=== PATIENT | female | born 1960 | race Caucasian/White ===

== ENCOUNTER 2022-06-22 13:57 | Emergency (ER) | payer BC ==
[2022-06-22 15:09] LABS: #Eosinphils 0.1 thou/uL (0.0-0.7); #Lymphocytes 0.4 thou/uL (1.20-3.40); #Monocytes 0.3 thou/uL (0.11-0.59); #Neutrophils 2.9 thou/uL (1.40-6.50); %Basophils 0.4 % (0.0-1.0); %Eosinophils 2.8 % (0.0-10.0); %Lymphocytes 11.6 % (21.0-51.0); %Monocytes 6.9 % (0.0-10.0); %Neutrophils 78.4 % (42.0-75.0); Hemoglobin 8.3 g/dL (12.0-16.0); Mean Corpuscular HGB CONC 33.5 g/dL (32.0-36.0); Mean Corpuscular Hemoglobin 35.5 pg (27.0-31.0); Mean Platelet Volume 8.1 fL (7.4-10.4); Platelet Count 129 10x3/uL (130-400); RBC Distribution Width 14.6 % (11.5-14.5); Red Blood Cell (RBC) Count 2.33 mill/uL (4.20-5.40); White Blood Cell (WBC) Count 3.7 10x3/uL (4.8-10.8)
[2022-06-22 15:32] LABS: ALT (SGPT) Less than 7 U/L (8-55); AST (SGOT) 11 U/L (5-34); Albumin 3.5 g/dL (3.4-4.8); Alkaline Phosphatase 63 U/L (40-110); Anion Gap 11 mmol/L (10-20); BUN (Urea Nitrogen) 15 mg/dL (9.8-20.1); Bilirubin, Total 0.3 mg/dL (0.2-1.2); Calc. Creatinine Clearance 0 mL/min (70-130); Calcium 9.2 mg/dL (7.8-10.44); Carbon Dioxide 26 mmol/L (23-31); Chloride 106 mmol/L (98-107); Estimated GFR 32; Globulin 2.7 g/dL (2.4-3.5); Glucose 111 mg/dL (80-115); Potassium 4.1 mmol/L (3.5-5.1); Protein, Total 6.2 g/dL (5.8-8.1); Sodium 139 mmol/L (136-145)
[2022-06-22 15:35] LABS: Bacteria/HPF None Seen HPF (None Seen); Bilirubin Negative (Negative); Blood, Urine Negative (Negative); Clarity Clear (Clear); Glucose, Urine (Dipstick) Normal (Negative); Ketone, Urine Negative (Negative); Leukocyte 25 Leu/uL (Negative); Nitrite Negative (Negative); Protein, Urine (Dipstick) Negative (Neg-Trace); RBC/HPF 0-3 HPF (0-3); Specific Gravity, Urine 1.016 (1.002-1.036); Squamous Epithelial 0-3 HPF (0-3); Urobilinogen Normal mg/dL (Less than 2); WBC/HPF 0-3 HPF (0-3); pH, Urine 5.5 (5.0-9.0)
== END 2022-06-22 16:07 | disposition home or self-care (01) ==
LOC: ERS 13:57
DX: M79.89 Other specified soft tissue disorders (principal); N76.2 Acute vulvitis; D72.829 Elevated white blood cell count, unspecified; I10 Essential (primary) hypertension; F17.210 Nicotine dependence, cigarettes, uncomplicated
CPT/HCPCS: 36415; 71045; 80053; 81003; 81015; 83880; 84484; 85025; 93005

== ENCOUNTER 2022-08-10 13:33 | Inpatient (IN) | payer BC ==
[2022-08-10] MEDS ORDERED: Morphine 4 MG/ML VIAL ONE ×2 (15:20→15:59)
[2022-08-10 15:47] LABS: ALT (SGPT) 13 U/L (8-55); AST (SGOT) 11 U/L (5-34); Albumin 3.5 g/dL (3.4-4.8); Alkaline Phosphatase 66 U/L (40-110); Anion Gap 14 mmol/L (10-20); BUN (Urea Nitrogen) 24 mg/dL (9.8-20.1); Bilirubin, Total 0.4 mg/dL (0.2-1.2); Calc. Creatinine Clearance 0 mL/min (70-130); Calcium 9.2 mg/dL (7.8-10.44); Carbon Dioxide 25 mmol/L (23-31); Chloride 105 mmol/L (98-107); Estimated GFR 32; Globulin 2.9 g/dL (2.4-3.5); Glucose 125 mg/dL (80-115); Magnesium 1.2 mg/dL (1.6-2.6); Potassium 4.8 mmol/L (3.5-5.1); Protein, Total 6.4 g/dL (5.8-8.1); Sodium 139 mmol/L (136-145)
[2022-08-10 15:48] LABS: Bacteria/HPF None Seen HPF (None Seen); Bilirubin Negative (Negative); Blood, Urine Negative (Negative); CAUTI Indications for Culture Pelvic or flank pain; Clarity Clear (Clear); Glucose, Urine (Dipstick) Normal (Negative); Ketone, Urine Negative (Negative); Leukocyte Negative Leu/uL (Negative); Nitrite Negative (Negative); Protein, Urine (Dipstick) Negative (Neg-Trace); RBC/HPF 0-3 HPF (0-3); Specific Gravity, Urine 1.012 (1.002-1.036); Squamous Epithelial None Seen HPF (0-3); Urobilinogen Normal mg/dL (Less than 2); WBC/HPF 0-3 HPF (0-3); pH, Urine 7.5 (5.0-9.0)
[2022-08-10 15:49] LABS: Urine Culture Reflex No No
[2022-08-10] MEDS ORDERED: Magnesium 2 GM/50 ML BAG (IN WATER) ONE (16:00)
[2022-08-10 16:09] LABS: #Eosinphils 0.8 thou/uL (0.0-0.7); #Monocytes 0.3 thou/uL (0.11-0.59); #Neutrophils 8.3 thou/uL (1.40-6.50); %Basophils 0.1 % (0.0-1.0); %Eosinophils 8.2 % (0.0-10.0); %Lymphocytes 3.6 % (21.0-51.0); %Neutrophils 83.6 % (42.0-75.0); Hemoglobin 8.6 g/dL (12.0-16.0); Mean Corpuscular HGB CONC 31.5 g/dL (32.0-36.0); Mean Corpuscular Hemoglobin 32.7 pg (27.0-31.0); Mean Corpuscular Volume 103.8 fl (78.0-98.0); Mean Platelet Volume 9.9 fL (7.4-10.4); Platelet Count 187 10x3/uL (130-400); RBC Distribution Width 14.3 % (11.5-14.5); Red Blood Cell (RBC) Count 2.63 mill/uL (4.20-5.40); White Blood Cell (WBC) Count 9.9 10x3/uL (4.8-10.8)
[2022-08-10] MEDS ORDERED: Ondansetron PF 4 MG/2 ML Vial IVP PRN (16:23)
[2022-08-10] MEDS ORDERED: Ipratropium/Albuterol 3 ML NEB NEB PRN (16:26)
[2022-08-10] MEDS ORDERED: HYDROmorphone 0.5 MG/0.5 ML SYRINGE ONE (17:11)
[2022-08-10] MEDS: Sodium Chloride 0.9% 1,000 ML IV SCH (18:36)
[2022-08-10] MEDS: Acetaminophen 500 MG TAB PO SCH ×2 (18:36→23:00)
[2022-08-10] MEDS: Morphine 4 MG/ML VIAL SLOW IVP PRN ×2 (18:37→21:12)
[2022-08-10] MEDS ORDERED: Famotidine/PF 20 mg/2ml Vial SLOW IVP SCH (21:00)
[2022-08-10] MEDS ORDERED: diphenhydrAMINE 50 MG/ML VIAL IVP SCH (21:00)
[2022-08-10] MEDS: Senokot S 8.6-50 MG TAB PO SCH (21:00)
[2022-08-10 21:06] VITALS: BMI 35.0
[2022-08-10] MEDS: HYDROcodone/Acetaminophen 10/325 mg Tablet PO PRN (21:11)
[2022-08-11] MEDS: Morphine 4 MG/ML VIAL SLOW IVP PRN ×5 (00:06→12:04)
[2022-08-11] MEDS: Cyclobenzaprine 10 MG TAB PO PRN (00:07)
[2022-08-11] MEDS ORDERED: diphenhydrAMINE 25 MG CAP PO PRN (00:19)
[2022-08-11] MEDS: HYDROcodone/Acetaminophen 10/325 mg Tablet PO PRN ×2 (03:15→20:35)
[2022-08-11] MEDS: Sodium Chloride 0.9% 1,000 ML IV SCH ×3 (05:00→17:30)
[2022-08-11] MEDS: Acetaminophen 500 MG TAB PO SCH ×4 (05:33→23:06)
[2022-08-11 06:33] LABS: #Eosinphils 0.5 thou/uL (0.0-0.7); #Monocytes 0.3 thou/uL (0.11-0.59); #Neutrophils 5.5 thou/uL (1.40-6.50); %Basophils 0.1 % (0.0-1.0); %Eosinophils 7.4 % (0.0-10.0); %Lymphocytes 5.9 % (21.0-51.0); %Monocytes 3.9 % (0.0-10.0); %Neutrophils 81.7 % (42.0-75.0); Mean Corpuscular HGB CONC 32.4 g/dL (32.0-36.0); Mean Corpuscular Hemoglobin 32.6 pg (27.0-31.0); Mean Corpuscular Volume 100.7 fl (78.0-98.0); Mean Platelet Volume 10.4 fL (7.4-10.4); Platelet Count 158 10x3/uL (130-400); RBC Distribution Width 15.4 % (11.5-14.5); Red Blood Cell (RBC) Count 2.76 mill/uL (4.20-5.40); White Blood Cell (WBC) Count 6.7 10x3/uL (4.8-10.8)
[2022-08-11 06:38] LABS: INR-International Normal Ratio 1.1; PTT 32.7 sec (22.9-36.1); Prothrombin Time 14.7 sec (12.0-14.7)
[2022-08-11 06:40] LABS: Phosphorus 3.9 mg/dL (2.3-4.7)
[2022-08-11 06:44] LABS: Anion Gap 12 mmol/L (10-20); BUN (Urea Nitrogen) 21 mg/dL (9.8-20.1); Calc. Creatinine Clearance 56 mL/min (70-130); Calcium 8.8 mg/dL (7.8-10.44); Carbon Dioxide 24 mmol/L (23-31); Chloride 103 mmol/L (98-107); Estimated GFR 39; Glucose 97 mg/dL (80-115); Magnesium 1.5 mg/dL (1.6-2.6); Potassium 4.2 mmol/L (3.5-5.1); Sodium 135 mmol/L (136-145)
[2022-08-11] MEDS ORDERED: Clindamycin/D5W 600 MG in Premix Bag 1 BAG IVPB SCH ×2 (08:45)
[2022-08-11] MEDS ORDERED: Non-Formulary Item 1 EACH (Oxybutynin Chloride [Oxybutynin Chloride Er] 10 MG Tab.Er.24) PO SCH (09:00)
[2022-08-11] MEDS: Gabapentin 300 MG CAP PO SCH ×3 (09:39→20:36)
[2022-08-11] MEDS: buPROPion HCl 100 MG TAB PO SCH (09:39)
[2022-08-11] MEDS: Citalopram 20 MG TAB PO SCH (09:39)
[2022-08-11] MEDS: Magnesium 2 GM/50 ML(in water) 2 GM in Premix Bag 1 BAG IVPB SCH ×2 (09:40→11:21)
[2022-08-11] MEDS: Ferrous Sulfate 325 MG TAB PO SCH ×2 (09:41→18:27)
[2022-08-11] MEDS: Ascorbic Acid 500 mg Chewable Tablet PO SCH ×2 (09:41→20:36)
[2022-08-11] MEDS: predniSONE 20 MG TAB PO SCH (09:41)
[2022-08-11] MEDS: Oxybutynin 5 MG TAB PO SCH (09:42)
[2022-08-11] MEDS: Polyethylene Glycol 3350 17 GM Packet PO SCH (09:42)
[2022-08-11] MEDS: Multivitamin W/ Minerals 1 TAB PO SCH (09:42)
[2022-08-11] MEDS: Senokot S 8.6-50 MG TAB PO SCH ×2 (09:42→20:36)
[2022-08-11] MEDS ORDERED: fentaNYL PF 100 MCG/2 ML SYRINGE ONE ×2 (13:55→17:11)
[2022-08-11] MEDS ORDERED: Levofloxacin 500 mg/D5W 100 ml Premix Bag ONE (14:59)
[2022-08-11] MEDS ORDERED: Clindamycin/D5W 600 mg/50 ml Premix Bag ONE (14:59)
[2022-08-11] MEDS ORDERED: Dexamethasone 20 MG/5 ML VIAL ONE (15:12)
[2022-08-11] MEDS ORDERED: PROPOFOL 200 MG/20 ML VIAL ONE (15:12)
[2022-08-11] MEDS ORDERED: Ondansetron PF 4 MG/2 ML Vial ONE (15:12)
[2022-08-11] MEDS ORDERED: Lidocaine 1% PF 5 ML VIAL ONE (15:12)
[2022-08-11] MEDS ORDERED: HYDROmorphone 2 MG/ML VIAL ONE (15:31)
[2022-08-11] MEDS ORDERED: HYDROmorphone 0.5 MG/0.5 ML SYRINGE ONE ×4 (16:32→17:03)
[2022-08-11] MEDS ORDERED: fentaNYL 50 mcg/mL 1 mL Vial ONE (17:37)
[2022-08-11] MEDS: Morphine 2 MG/ML VIAL SLOW IVP PRN ×2 (20:34→23:06)
[2022-08-11] MEDS: Famotidine/PF 20 mg/2ml Vial SLOW IVP SCH (20:36)
[2022-08-11] MEDS: Diazepam 5 MG TAB PO SCH (23:06)
[2022-08-11] MEDS: Clindamycin/D5W 900 MG in Premix Bag 1 BAG IVPB SCH (23:06)
[2022-08-12] MEDS: Acetaminophen 500 MG TAB PO SCH (05:40)
[2022-08-12] MEDS: Morphine 2 MG/ML VIAL SLOW IVP PRN ×7 (05:43→21:00)
[2022-08-12] MEDS: HYDROcodone/Acetaminophen 10/325 mg Tablet PO PRN ×3 (05:44→17:22)
[2022-08-12] MEDS: Clindamycin/D5W 900 MG in Premix Bag 1 BAG IVPB SCH ×2 (05:44→15:32)
[2022-08-12] MEDS: Sodium Chloride 0.9% 1,000 ML IV SCH ×3 (07:25→19:39)
[2022-08-12 07:48] LABS: #Eosinphils 0.1 thou/uL (0.0-0.7); #Monocytes 0.3 thou/uL (0.11-0.59); #Neutrophils 5.7 thou/uL (1.40-6.50); %Eosinophils 1.4 % (0.0-10.0); %Lymphocytes 4.3 % (21.0-51.0); %Neutrophils 88.7 % (42.0-75.0); Hemoglobin 8.1 g/dL (12.0-16.0); Mean Corpuscular HGB CONC 30.9 g/dL (32.0-36.0); Mean Corpuscular Hemoglobin 31.4 pg (27.0-31.0); Mean Corpuscular Volume 101.6 fl (78.0-98.0); Mean Platelet Volume 10.2 fL (7.4-10.4); Platelet Count 129 10x3/uL (130-400); RBC Distribution Width 14.9 % (11.5-14.5); Red Blood Cell (RBC) Count 2.58 mill/uL (4.20-5.40); White Blood Cell (WBC) Count 6.4 10x3/uL (4.8-10.8)
[2022-08-12 08:17] LABS: Anion Gap 13 mmol/L (10-20); BUN (Urea Nitrogen) 22 mg/dL (9.8-20.1); Calc. Creatinine Clearance 52 mL/min (70-130); Calcium 8.8 mg/dL (7.8-10.44); Carbon Dioxide 26 mmol/L (23-31); Chloride 103 mmol/L (98-107); Estimated GFR 36; Glucose 121 mg/dL (80-115); Magnesium 2.2 mg/dL (1.6-2.6); Phosphorus 4.9 mg/dL (2.3-4.7); Potassium 4.7 mmol/L (3.5-5.1); Sodium 137 mmol/L (136-145)
[2022-08-12] MEDS: Multivitamin W/ Minerals 1 TAB PO SCH (09:34)
[2022-08-12] MEDS: Ferrous Sulfate 325 MG TAB PO SCH ×2 (09:34→17:22)
[2022-08-12] MEDS: buPROPion HCl 100 MG TAB PO SCH (09:34)
[2022-08-12] MEDS: Citalopram 20 MG TAB PO SCH (09:34)
[2022-08-12] MEDS: Ascorbic Acid 500 mg Chewable Tablet PO SCH ×2 (09:34→17:21)
[2022-08-12] MEDS: Oxybutynin 5 MG TAB PO SCH (09:35)
[2022-08-12] MEDS: Senokot S 8.6-50 MG TAB PO SCH ×2 (09:35→20:55)
[2022-08-12] MEDS: predniSONE 20 MG TAB PO SCH (09:35)
[2022-08-12] MEDS: Polyethylene Glycol 3350 17 GM Packet PO SCH (09:36)
[2022-08-12] MEDS: Gabapentin 300 MG CAP PO SCH ×3 (09:37→20:55)
[2022-08-12] MEDS: Acetaminophen 325 MG TAB PO SCH ×2 (11:06→17:22)
[2022-08-12] MEDS: Diazepam 5 MG TAB PO SCH (20:55)
[2022-08-12] MEDS: Famotidine/PF 20 mg/2ml Vial SLOW IVP SCH (20:55)
[2022-08-13] MEDS: Acetaminophen 325 MG TAB PO SCH ×5 (01:04→23:46)
[2022-08-13] MEDS: Sodium Chloride 0.9% 1,000 ML IV SCH (01:52)
[2022-08-13] MEDS: Morphine 2 MG/ML VIAL SLOW IVP PRN (03:47)
[2022-08-13 08:35] LABS: #Eosinphils 0.1 thou/uL (0.0-0.7); #Monocytes 0.3 thou/uL (0.11-0.59); #Neutrophils 5.6 thou/uL (1.40-6.50); %Basophils 0.2 % (0.0-1.0); %Eosinophils 1.4 % (0.0-10.0); %Monocytes 4.3 % (0.0-10.0); %Neutrophils 87.6 % (42.0-75.0); Hemoglobin 8.3 g/dL (12.0-16.0); Mean Corpuscular HGB CONC 31.7 g/dL (32.0-36.0); Mean Corpuscular Hemoglobin 32.2 pg (27.0-31.0); Mean Corpuscular Volume 101.6 fl (78.0-98.0); Mean Platelet Volume 10.4 fL (7.4-10.4); Platelet Count 134 10x3/uL (130-400); RBC Distribution Width 14.5 % (11.5-14.5); Red Blood Cell (RBC) Count 2.58 mill/uL (4.20-5.40); White Blood Cell (WBC) Count 6.3 10x3/uL (4.8-10.8)
[2022-08-13 09:04] LABS: Anion Gap 12 mmol/L (10-20); BUN (Urea Nitrogen) 22 mg/dL (9.8-20.1); Calc. Creatinine Clearance 53 mL/min (70-130); Calcium 9.2 mg/dL (7.8-10.44); Carbon Dioxide 27 mmol/L (23-31); Chloride 103 mmol/L (98-107); Estimated GFR 37; Glucose 135 mg/dL (80-115); Magnesium 1.7 mg/dL (1.6-2.6); Phosphorus 3.7 mg/dL (2.3-4.7); Sodium 138 mmol/L (136-145)
[2022-08-13] MEDS: Polyethylene Glycol 3350 17 GM Packet PO SCH (09:43)
[2022-08-13] MEDS: Aspirin 81 mg Enteric Coated Tablet PO SCH ×2 (09:43→20:36)
[2022-08-13] MEDS: Senokot S 8.6-50 MG TAB PO SCH ×2 (09:43→20:37)
[2022-08-13] MEDS: buPROPion HCl 100 MG TAB PO SCH (09:43)
[2022-08-13] MEDS: Gabapentin 300 MG CAP PO SCH ×3 (09:44→20:37)
[2022-08-13] MEDS: Ferrous Sulfate 325 MG TAB PO SCH ×2 (09:44→16:26)
[2022-08-13] MEDS: Ascorbic Acid 500 mg Chewable Tablet PO SCH ×2 (09:44→16:27)
[2022-08-13] MEDS: predniSONE 20 MG TAB PO SCH (09:45)
[2022-08-13] MEDS: Citalopram 20 MG TAB PO SCH (09:45)
[2022-08-13] MEDS: HYDROcodone/Acetaminophen 10/325 mg Tablet PO PRN ×3 (09:45→22:01)
[2022-08-13] MEDS: Oxybutynin 5 MG TAB PO SCH (09:45)
[2022-08-13] MEDS: Multivitamin W/ Minerals 1 TAB PO SCH (09:45)
[2022-08-13] MEDS ORDERED: Hydrochlorothiazide 25 MG TAB PO SCH (12:15)
[2022-08-13] MEDS ORDERED: Acetaminophen 325 MG TAB PO SCH (13:00)
[2022-08-13] MEDS: traMADol HCl 50 MG TAB PO SCH ×3 (13:02→23:45)
[2022-08-13] MEDS: Diazepam 5 MG TAB PO SCH (20:38)
[2022-08-13] MEDS: Pramipexole Di-HCl 0.125 MG TAB PO SCH (20:38)
[2022-08-13] MEDS: Famotidine/PF 20 mg/2ml Vial SLOW IVP SCH (20:38)
[2022-08-14] MEDS: traMADol HCl 50 MG TAB PO SCH ×4 (06:02→23:28)
[2022-08-14] MEDS: Acetaminophen 325 MG TAB PO SCH ×4 (06:03→23:28)
[2022-08-14] MEDS: Aspirin 81 mg Enteric Coated Tablet PO SCH ×2 (09:00→21:04)
[2022-08-14] MEDS: Senokot S 8.6-50 MG TAB PO SCH ×2 (09:00→21:05)
[2022-08-14] MEDS ORDERED: Non-Formulary Item 1 EACH (Hydrochlorothiazide [Hydrochlorothiazide] 12.5 MG Tablet) PO SCH (09:00)
[2022-08-14] MEDS: HYDROcodone/Acetaminophen 10/325 mg Tablet PO PRN ×3 (09:00→21:04)
[2022-08-14] MEDS: Multivitamin W/ Minerals 1 TAB PO SCH (09:01)
[2022-08-14] MEDS: Citalopram 20 MG TAB PO SCH (09:01)
[2022-08-14] MEDS: Polyethylene Glycol 3350 17 GM Packet PO SCH (09:01)
[2022-08-14] MEDS: Gabapentin 300 MG CAP PO SCH ×3 (09:01→21:08)
[2022-08-14] MEDS: Oxybutynin 5 MG TAB PO SCH (09:01)
[2022-08-14] MEDS: Hydrochlorothiazide 25 MG TAB PO SCH (09:01)
[2022-08-14] MEDS: buPROPion HCl 100 MG TAB PO SCH (09:01)
[2022-08-14] MEDS: Ferrous Sulfate 325 MG TAB PO SCH ×2 (09:02→17:28)
[2022-08-14] MEDS: Ascorbic Acid 500 mg Chewable Tablet PO SCH ×2 (09:02→17:28)
[2022-08-14] MEDS: predniSONE 20 MG TAB PO SCH (09:02)
[2022-08-14] MEDS ORDERED: Amlodipine 5 MG TAB PO SCH ×2 (10:18→10:30)
[2022-08-14] MEDS: Diazepam 5 MG TAB PO SCH (21:05)
[2022-08-14] MEDS: Pramipexole Di-HCl 0.125 MG TAB PO SCH (21:05)
[2022-08-14] MEDS: Famotidine/PF 20 mg/2ml Vial SLOW IVP SCH (21:07)
[2022-08-15] MEDS: traMADol HCl 50 MG TAB PO SCH ×4 (05:48→23:43)
[2022-08-15] MEDS: Acetaminophen 325 MG TAB PO SCH ×4 (05:50→23:35)
[2022-08-15] MEDS: Ascorbic Acid 500 mg Chewable Tablet PO SCH ×2 (09:20→16:51)
[2022-08-15] MEDS: Aspirin 81 mg Enteric Coated Tablet PO SCH ×2 (09:21→21:12)
[2022-08-15] MEDS: Amlodipine 5 MG TAB PO SCH (09:21)
[2022-08-15] MEDS: buPROPion HCl 100 MG TAB PO SCH (09:21)
[2022-08-15] MEDS: Polyethylene Glycol 3350 17 GM Packet PO SCH (09:22)
[2022-08-15] MEDS: Multivitamin W/ Minerals 1 TAB PO SCH (09:22)
[2022-08-15] MEDS: Citalopram 20 MG TAB PO SCH (09:22)
[2022-08-15] MEDS: predniSONE 20 MG TAB PO SCH (09:23)
[2022-08-15] MEDS: Ferrous Sulfate 325 MG TAB PO SCH ×2 (09:23→16:51)
[2022-08-15] MEDS: Gabapentin 300 MG CAP PO SCH ×3 (09:23→21:12)
[2022-08-15] MEDS: Oxybutynin 5 MG TAB PO SCH (09:23)
[2022-08-15] MEDS: Hydrochlorothiazide 25 MG TAB PO SCH ×2 (09:24→18:46)
[2022-08-15] MEDS: HYDROcodone/Acetaminophen 10/325 mg Tablet PO PRN ×3 (09:26→23:44)
[2022-08-15] MEDS: Senokot S 8.6-50 MG TAB PO SCH ×2 (09:31→21:12)
[2022-08-15] MEDS: Pramipexole Di-HCl 0.125 MG TAB PO SCH (21:11)
[2022-08-15] MEDS: Famotidine/PF 20 mg/2ml Vial SLOW IVP SCH (21:11)
[2022-08-15] MEDS: Diazepam 5 MG TAB PO SCH (21:12)
[2022-08-16] MEDS: HYDROcodone/Acetaminophen 10/325 mg Tablet PO PRN ×3 (06:25→20:07)
[2022-08-16] MEDS: Acetaminophen 325 MG TAB PO SCH ×4 (06:48→22:06)
[2022-08-16] MEDS: traMADol HCl 50 MG TAB PO SCH ×4 (06:48→22:04)
[2022-08-16] MEDS: Cyclobenzaprine 10 MG TAB PO PRN (08:18)
[2022-08-16] MEDS: Ferrous Sulfate 325 MG TAB PO SCH ×2 (08:19→17:26)
[2022-08-16] MEDS: buPROPion HCl 100 MG TAB PO SCH (08:19)
[2022-08-16] MEDS: Senokot S 8.6-50 MG TAB PO SCH ×2 (08:19→20:06)
[2022-08-16] MEDS: Multivitamin W/ Minerals 1 TAB PO SCH (08:19)
[2022-08-16] MEDS: predniSONE 20 MG TAB PO SCH (08:19)
[2022-08-16] MEDS: Aspirin 81 mg Enteric Coated Tablet PO SCH ×2 (08:19→20:06)
[2022-08-16] MEDS: Citalopram 20 MG TAB PO SCH (08:19)
[2022-08-16] MEDS: Polyethylene Glycol 3350 17 GM Packet PO SCH (08:19)
[2022-08-16] MEDS: Oxybutynin 5 MG TAB PO SCH (08:19)
[2022-08-16] MEDS: Ascorbic Acid 500 mg Chewable Tablet PO SCH ×2 (08:20→17:26)
[2022-08-16] MEDS: Hydrochlorothiazide 25 MG TAB PO SCH (08:20)
[2022-08-16] MEDS: Gabapentin 300 MG CAP PO SCH ×3 (08:20→20:06)
[2022-08-16] MEDS: Amlodipine 5 MG TAB PO SCH (08:20)
[2022-08-16] MEDS ORDERED: Hydrochlorothiazide 25 MG TAB PO SCH (09:00)
[2022-08-16] MEDS: Diazepam 5 MG TAB PO SCH (20:06)
[2022-08-16] MEDS ORDERED: Famotidine 20 MG TAB PO SCH (21:00)
[2022-08-16] MEDS: Pramipexole Di-HCl 0.125 MG TAB PO SCH (22:04)
[2022-08-17] MEDS: traMADol HCl 50 MG TAB PO SCH ×2 (05:54→13:49)
[2022-08-17] MEDS: Acetaminophen 325 MG TAB PO SCH ×2 (05:54→13:50)
[2022-08-17 06:21] LABS: #Eosinphils 0.1 thou/uL (0.0-0.7); #Monocytes 0.4 thou/uL (0.11-0.59); %Basophils 0.1 % (0.0-1.0); %Lymphocytes 8.2 % (21.0-51.0); %Monocytes 5.2 % (0.0-10.0); %Neutrophils 85.1 % (42.0-75.0); Hemoglobin 9.4 g/dL (12.0-16.0); Mean Corpuscular HGB CONC 31.3 g/dL (32.0-36.0); Mean Corpuscular Hemoglobin 31.6 pg (27.0-31.0); Mean Platelet Volume 9.5 fL (7.4-10.4); Platelet Count 204 10x3/uL (130-400); RBC Distribution Width 13.9 % (11.5-14.5); Red Blood Cell (RBC) Count 2.97 mill/uL (4.20-5.40)
[2022-08-17] MEDS: Citalopram 20 MG TAB PO SCH (08:47)
[2022-08-17] MEDS: Senokot S 8.6-50 MG TAB PO SCH (08:53)
[2022-08-17] MEDS: HYDROcodone/Acetaminophen 10/325 mg Tablet PO PRN (08:54)
[2022-08-17] MEDS: Ferrous Sulfate 325 MG TAB PO SCH (08:55)
[2022-08-17] MEDS: Hydrochlorothiazide 25 MG TAB PO SCH (08:55)
[2022-08-17] MEDS: Multivitamin W/ Minerals 1 TAB PO SCH (08:55)
[2022-08-17] MEDS: Ascorbic Acid 500 mg Chewable Tablet PO SCH (08:55)
[2022-08-17] MEDS: Oxybutynin 5 MG TAB PO SCH (08:55)
[2022-08-17] MEDS: buPROPion HCl 100 MG TAB PO SCH (08:55)
[2022-08-17] MEDS: Aspirin 81 mg Enteric Coated Tablet PO SCH (08:56)
[2022-08-17] MEDS: Amlodipine 5 MG TAB PO SCH (08:56)
[2022-08-17] MEDS: predniSONE 20 MG TAB PO SCH (08:56)
[2022-08-17] MEDS: Gabapentin 300 MG CAP PO SCH ×2 (08:57→13:48)
[2022-08-17] MEDS: Polyethylene Glycol 3350 17 GM Packet PO SCH (08:58)
[2022-08-17 11:43] VITALS: BP 154/81; TEMP 98.3
== END 2022-08-17 15:00 | disposition home or self-care (01) | DRG 481 ==
LOC: ERS 13:33 → SURG B 16:26
PROVIDERS: ADMIT Surgery; ATTEND Surgery
PROC: 30233N1 Transfusion of Nonautologous Red Blood Cells into Peripheral Vein, Percutaneous Approach (ICD-10-PCS; 2022-08-10)
PROC: 0QS604Z Reposition Right Upper Femur with Internal Fixation Device, Open Approach (ICD-10-PCS; principal; 2022-08-11)
DX: S72.141A Displaced intertrochanteric fracture of right femur, initial encounter for closed fracture (principal); E87.1 Hypo-osmolality and hyponatremia; D63.1 Anemia in chronic kidney disease; N18.9 Chronic kidney disease, unspecified; Z96.653 Presence of artificial knee joint, bilateral; I12.9 Hypertensive chronic kidney disease with stage 1 through stage 4 chronic kidney disease, or unspecified chronic kidney disease; E11.22 Type 2 diabetes mellitus with diabetic chronic kidney disease; F17.210 Nicotine dependence, cigarettes, uncomplicated; M25.461 Effusion, right knee; E83.41 Hypermagnesemia; C51.0 Malignant neoplasm of labium majus; W18.39XA Other fall on same level, initial encounter; Y92.009 Unspecified place in unspecified non-institutional (private) residence as the place of occurrence of the external cause; Z88.2 Allergy status to sulfonamides; Z88.8 Allergy status to other drugs, medicaments and biological substances; Z85.44 Personal history of malignant neoplasm of other female genital organs; Z92.21 Personal history of antineoplastic chemotherapy; Z79.52 Long term (current) use of systemic steroids; Z79.1 Long term (current) use of non-steroidal anti-inflammatories (NSAID); Z79.899 Other long term (current) drug therapy
CPT/HCPCS: 36415; 36430; 71045; 72170; 78815; 80048; 80053; 80061; 81001; 83036; 83735; 84100; 84443; 85025; 85610; 85730; 86850; 86900; 86901; 93970; 96374; 96375; 96376; A9552; C1713; J1100; J1170; J1200; J1956; J2270; J2272; J2405; J2704; J3010; J3475; J3490; J7050; J7512; P9016; S0028

== ENCOUNTER 2022-11-18 11:39 | Outpatient (CLI) | payer BC | END 2022-11-18 11:40 | disposition home or self-care (01) | LOC: PET 11:39 | PROVIDERS: ATTEND Internal Medicine Hematology & Oncology | DX: C51.1 Malignant neoplasm of labium minus (principal); J18.9 Pneumonia, unspecified organism | CPT/HCPCS: 78815; A9552 ==

== ENCOUNTER 2022-11-23 08:53 | Day surgery (SDC) | payer BC ==
[2022-11-23] MEDS ORDERED: Acetaminophen 500 MG TAB PO SCH (09:45)
[2022-11-23] MEDS ORDERED: diphenhydrAMINE 25 MG CAP PO SCH (09:45)
[2022-11-23] MEDS ORDERED: Acetaminophen 500 MG TAB ONE (09:58)
[2022-11-23] MEDS ORDERED: diphenhydrAMINE 25 MG CAP ONE (09:58)
[2022-11-23 15:21] VITALS: BP 168/78; TEMP 98
== END 2022-11-23 15:22 | disposition home or self-care (01) ==
LOC: ONC/OP 08:53
PROVIDERS: ATTEND Internal Medicine Hematology & Oncology
DX: D64.9 Anemia, unspecified (principal); D69.6 Thrombocytopenia, unspecified
CPT/HCPCS: 36430; 86850; 86900; 86901; J1642; P9016